=== PATIENT | female | born 1950 | race Caucasian/White ===

== ENCOUNTER → 2017-05-19 | Outpatient (CLI) | payer MEDICARE ==
--- NOTE | 2017-05-19 15:57 | Diagnostic Imaging Report ---
TECHNIQUE: Magnetic resonance imaging of the LEFT KNEE was performed WITHOUT injected contrast. HISTORY: Left knee pain COMPARISON: None available. FINDINGS: LIGAMENTS AND TENDONS: ACL: Intact PCL: Intact Collateral ligaments: Intact Iliotibial band: Unremarkable Popliteal tendon: Intact Extensor mechanism: Intact JOINT: Menisci: Medial: Intact Lateral: Intact Articular Cartilage: Medial Compartment: Partial thickness cartilage loss with high-grade fissuring of the nonweightbearing femoral condyle Lateral Compartment: Partial-thickness cartilage loss Patellofemoral Compartment: Partial-thickness cartilage loss Joint Fluid: The amount of fluid within the joint is within physiologic limits. BONE: 1.9 cm enchondroma within the femoral metaphysis. No acute fracture. SOFT TISSUES: Otherwise, unremarkable. IMPRESSION: No acute osseous, ligamentous, or meniscal abnormality. Tricompartmental cartilage loss. 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 Signed by: Dr. Aaron Strauss M.D. on 05/19/2017 3:53 PM
== END | disposition home or self-care (01) ==
LOC: MRI 14:18
PROVIDERS: ATTEND Specialist
DX: S83.262A Peripheral tear of lateral meniscus, current injury, left knee, initial encounter (principal)

== ENCOUNTER 2017-06-02 12:36 | Outpatient (RCR) | payer MEDICARE | END 2017-06-07 | LOC: PT 12:36 | PROVIDERS: ATTEND Specialist | DX: M17.12 Unilateral primary osteoarthritis, left knee (principal) | CPT/HCPCS: 97110 ×2; 97161; G8978; G8979 ==

== ENCOUNTER 2017-06-19 12:47 | Outpatient (RCR) | payer MEDICARE | END 2017-07-07 | LOC: PT 12:47 | PROVIDERS: ATTEND Specialist | DX: M17.12 Unilateral primary osteoarthritis, left knee (principal); M25.562 Pain in left knee; M25.662 Stiffness of left knee, not elsewhere classified; R26.2 Difficulty in walking, not elsewhere classified; M62.81 Muscle weakness (generalized) ==